=== PATIENT | female | born 1980 | race Caucasian/White ===

== ENCOUNTER → 2019-04-25 | Outpatient (CLI) | payer SELFPAY | PROVIDERS: Family Provider Internal Medicine; Visit Provider Internal Medicine | DX: R06.09 Other forms of dyspnea (principal); R41.3 Other amnesia | CPT/HCPCS: 71046 ==

== ENCOUNTER → 2019-05-24 13:45 | Outpatient (BNVA) | payer BC, SELFPAY | PROVIDERS: Family Provider Internal Medicine; PCP Internal Medicine; Visit Provider Nurse Practitioner Women's Health | DX: Z01.89 Encounter for other specified special examinations (principal) ==

== ENCOUNTER 2019-05-26 13:33 | Outpatient (CLI) | payer BC, SELFPAY ==
--- NOTE | 2019-05-26 13:45 | MR_ITS ---
WS: [id number] MRI HEAD WITH CONTRAST TECHNIQUE: Sagittal T1, T2 axial, T2 axial FLAIR, axial susceptibility weighted imaging, axial diffus ion weighted images, and coronal T2 images were obtained. Pre and post-T1 axial and post T1 coronal i mages. ADC and FSPGR images. CLINICAL INFORMATION: Memory loss or impairment COMPARISON: None. FINDINGS: No evidence of restricted diffusion to suggest acute ischemia. Ventricular system and basal cisterns are patent. No suspicious intracranial signal abnormalities. Normal robbins-white differentiation. Mayte l posterior fossa. Normal vascular flow voids at the skull base. Proximal 7th and 8th cranial nerves appear normal. Mild mucosal thickening in the paranasal sinuses. Mastoid air cells are well aerated. No hemosiderin on susceptibly weighted images. Normal optic chiasm and pituitary and infundibulum. Normal cavernous sinuses. Normal dural venous sin uses. MR/MR head wo/w con [id number] IMPRESSION: 1. No evidence of restricted diffusion to suggest acute ischemia. 2. No suspicious intracranial signal abnormalities. No significant parenchymal volume loss. 3. Mild mucosal thickening in the paranasal sinuses. Mastoid air cells are wel l aerated. 4. No abnormal intracranial enhancement. 5. Temporal lobes and hippocampal formations are normal in appearance.
== END 2019-05-26 13:34 | disposition home or self-care (01) ==
LOC: RADSHAW 13:38
PROVIDERS: Family Provider Internal Medicine; PCP Internal Medicine; Visit Provider Internal Medicine
DX: R41.3 Other amnesia (principal)
CPT/HCPCS: 70553; A9579

== ENCOUNTER 2019-06-05 15:03 | Outpatient (CLI) | payer BC, SELFPAY ==
--- NOTE | 2019-06-05 15:09 | USCV_ITS ---
Denice Dietz Age: 39 Gender: F : 1980 Exam Date: 06/05/2019 15:22 Ordering Phys: Farhad Kiran MD Technologist: Melva Andersen Exam Location: [facility] – [place] Indication: DYSPNEA ON EXERTION BP: 120 / 68 HR: 92 Rhythm: Sinus Technical Quality: Adequate MEASUREMENTS (Male / Female) Normal Values 2D ECHO LV Diastolic Diameter PLAX 4.4 cm 4.2 - 5.9 / 3.9 - 5.3 cm LV Systolic Diameter PLAX 3.6 cm LV Chamber Size 4.1 cm IVS Diastolic Thickness 0.7 cm 0.6 - 1.0 / 0.6 - 0.9 cm IVS Systolic Thickness 1.3 cm LVPW Diastolic Thickness 1.6 cm 0.6 - 1.0 / 0.6 - 0.9 cm LVPW Systolic Thickness 1.9 cm RV Chamber Size 2.6 cm LVOT Diameter 2.0 cm LV Ejection Fraction 2D Teich 37.3 % LV Ejection Fraction MOD 2C 64.2 % LV Ejection Fraction 2C AL 63.9 % LA Diameter 2.8 cm LA Width 3.7 cm LA Height 3.0 cm RA Width 2.8 cm RA Height 3.9 cm Aorta at Sinotubular Diameter 1.6 cm M-MODE LV Diastolic Diameter MM 5.4 cm 4.2 - 5.9 / 3.9 - 5.3 cm LV Systolic Diameter MM 4.1 cm LV Ejection Fraction MM Teich 46.6 % IVS Diastolic Thickness MM 0.6 cm 0.6 - 1.0 / 0.6 - 0.9 cm IVS Systolic Thickness MM 0.9 cm LVPW Diastolic Thickness MM 0.7 cm 0.6 - 1.0 / 0.6 - 0.9 cm LVPW Systolic Thickness MM 0.9 cm Aortic Annulus Diameter 2.7 cm LA Ao Ratio MM 1.0 MV E Point Septal Separation 1.2 cm DOPPLER AV Peak Velocity 136.0 cm/s LVOT Peak Velocity 103.0 cm/s AV Area Cont Eq vti 2.8 cm squared AV Area Cont Eq pk 2.4 cm squared MV Area PHT 3.9 cm squared Mitral E to A Ratio 1.2 MV E' Velocity 18.0 cm/s Mitral E to MV E' Ratio 5.0 Mitral E to LV E' Lateral Ratio 4.7 Mitral E to LV E' Septal Ratio 5.2 TR Peak Velocity 240.0 cm/s TR Peak Gradient 23.1 mmHg TV Peak E Velocity 54.0 cm/s Right Atrial Pressure 3.0 mmHg Pulmonary Artery Systolic Pressu 26.0 mmHg PV Peak Velocity 60.0 cm/s RV Acceleration Time 0.1 s RV Ejection Time 0.3 s RV AcT/ET 0.4 FINDINGS Left Ventricle Normal LV size with borderline low ejection fraction of 50 to 55%. Relative hypokinesis of the anteroseptal segments Right Ventricle The right ventricle is normal in size and function. Right Atrium The right atrium is normal in size. Left Atrium The left atrium is normal in size. Mitral Valve No gross morphologic abnormalities noted Aortic Valve Structurally normal aortic valve without significant sclerosis or stenosis. There is no aortic regurgitation. Tricuspid Valve Pulmonary artery systolic pressure is normal. Trace tricuspid valve regurgitation. Pulmonic Valve No gross abnormalities noted Pericardium Normal pericardium without effusion. Aorta Normal ascending aorta dimension. CONCLUSIONS Normal LV size with borderline low ejection fraction of 50 to 55%. Relative hypokinesis of the anteroseptal segments. Trace tricuspid valve regurgitation. Pulmonary artery systolic pressure is normal. No significant stenotic or elevated lesions. There is no pericardial effusion. There are no intracardiac masses. No previous study is available for comparison. Dr Rach Gonzales MD FACC (Electronically Signed) Final Date: 06 June 2019 22:23 S
== END 2019-06-05 15:04 | disposition home or self-care (01) ==
LOC: RAD 15:05
PROVIDERS: Family Provider Internal Medicine; PCP Internal Medicine; Visit Provider Internal Medicine
DX: R06.00 Dyspnea, unspecified (principal); I07.1 Rheumatic tricuspid insufficiency
CPT/HCPCS: 93306

== ENCOUNTER → 2019-06-06 14:12 | Outpatient (BNVA) | payer BC, SELFPAY | PROVIDERS: Family Provider Internal Medicine; PCP Internal Medicine; Visit Provider Otolaryngology | DX: J32.9 Chronic sinusitis, unspecified (principal); J31.0 Chronic rhinitis; J34.2 Deviated nasal septum; J34.3 Hypertrophy of nasal turbinates; T48.5X5A Adverse effect of other anti-common-cold drugs, initial encounter; X58.XXXA Exposure to other specified factors, initial encounter | CPT/HCPCS: 99203; 99214 ==

== ENCOUNTER 2019-10-16 20:44 | Emergency (ER) | payer BC, SELFPAY ==
--- NOTE | 2019-10-16 21:09 | W.ED.ANIMALB ---
HPI - Animal Bite General: Chief Complaint: Animal Bite Stated Complaint: cat bite Time Seen by Provider: 10/16/19 21:09 Source: patient Mode of arrival: ambulatory Limitations: no limitations History of Present Illness: HPI narrative: Patient is a 39-year-old female who presents to ED today with complaints of a cat bite to her right index finger that she sustained earlier this morning. She states the animal was a small kitten and was a stray so vaccination status is unknown. She states she has found at home for the kitten with a friend and the animal can be quarantined and monitored for the next 10 days. Tetanus is up-to-date. Onset (ago): hour(s) Animal: cat Description of animal: immunizations unknown and appeared well Mechanism: bite Location: other (R index finger) Associated symptoms: Deny chills or fever(s) Related Data: Patient tetanus UTD: Yes Review of Systems Const: Denies: fever(s), chills, body aches, fatigue or malaise Musc: Reports: extremity pain (R index finger) PFSH ED PFSH: Medical History (Updated 10/16/19 @ 22:21 by CRISTELA Eli) Anxiety Chronic fatigue Deviated septum Displacement of lumbar disc with radiculopathy LING (dyspnea on exertion) Memory loss or impairment Nasal turbinate hypertrophy Rhinitis medicamentosa Surgical History History of section (~2001) Family History Father CAD (coronary artery disease) Cancer, Onset Age: 67 Colon cancer Diabetes Hyperlipidemia Hypertension Stroke Amyloidosis Grandmother Cancer, Onset Age: 35 Maternal grandmother-Breast cancer Family/Other Cancer, Onset Age: 60 Maternal aunt-Breast cancer Mother Cancer uterine cancer- dx'd at 73 Hyperlipidemia Social History Smoking and tobacco status: never smoked Alcohol intake: current History of recent travel: No Physical Exam Const: COMMON NORMALS: no acute distress, average body habitus, patient oriented x3, no limitations, healthy appearing, alert and well nourished Extremity: OTHER: small puncture jonathon to palmar pad of R index finger with very mild swelling and redness present Neuro: COMMON NORMALS: patient oriented x3 SENSORIUM/ORIENTATION: Yes alert Skin: OTHER: see extremity assessment Course Vital Signs: Vital signs: Vital Signs Temperature 98.8 F 10/16/19 21:14 Pulse Rate 79 10/16/19 21:14 Respiratory Rate 16 10/16/19 21:14 Blood Pressure 138/88 10/16/19 21:14 Pulse Oximetry 99 10/16/19 21:14 Discharge Plan Discharge Patient Disposition: Home, Self-Care Clinical Impression: Cat bite of index finger Qualifiers: Encounter type: initial encounter Qualified Code(s): S61.258A - Open bite of other finger without damage to nail, initial encounter Condition: Stable Prescriptions: New amoxicillin-pot clavulanate [Augmentin] 875-125 mg tablet 1 tab PO Q12H 7 Days Qty: 14 RF: 0 No Action cephalexin 500 mg capsule 500 mg PO TID 10 Days Qty: 30 RF: 0 duloxetine 30 mg capsule,delayed release(DR/EC) See Rx Instructions .ROUTE .COMPLEX Qty: 30 RF: 0 Discharge Orders: Discharge Order (Routine); Ordered 10/16/19 Ordered By: Christina Cisneros Referrals: Farhad Kiran MD [Primary Care Provider] - Patient Instructions: Animal Bite (ED) Activity Restrictions/Additional Instructions: As discussed we will place you on antibiotics for the cat bite. Monitor for worsening signs of infection such as increasing redness, swelling, pain, drainage, fevers. Continue to monitor the cats mental status over the next 10 days and seek medical treatment if the cat begins to act abnormally. Coding Level of Care Code ED Copy Technician for Ken Segura
[2019-10-16 21:14] VITALS: BP 138/88; PULSE 79; RESP 16; TEMP 37.1; O2SAT 99; BMI 23.6
[2019-10-16] MEDS: amoxicillin-clav 875-125 mg Tablet 1 TAB PO (22:34)
[2019-10-16 22:35] VITALS: BP 140/82; PULSE 74; RESP 18; O2SAT 99
== END 2019-10-16 22:40 | disposition home or self-care (01) ==
PROVIDERS: Emergency Provider Physician Assistant; PCP Internal Medicine
DX: S61.250A Open bite of right index finger without damage to nail, initial encounter (principal); W55.01XA Bitten by cat, initial encounter
CPT/HCPCS: 12345; 99281; 99282

== ENCOUNTER → 2020-11-13 09:05 | Outpatient (BNVA) | payer OTHER, SELFPAY | PROVIDERS: PCP Internal Medicine; Visit Provider Nurse Practitioner Women's Health | DX: Z01.419 Encounter for gynecological examination (general) (routine) without abnormal findings (principal); F32.81 Premenstrual dysphoric disorder; R10.2 Pelvic and perineal pain; Z12.39 Encounter for other screening for malignant neoplasm of breast | CPT/HCPCS: 88175 ==

== ENCOUNTER 2021-05-22 12:24 | Outpatient (CLI) | payer OTHER, SELFPAY ==
--- NOTE | 2021-05-22 12:30 | XRR_ITS ---
PROCEDURE INFORMATION: Exam: XR Chest Exam date and time: 05/22/2021 12:30 PM Age: 41 years old Clinical indication: Pain and injury or trauma; Fall; Blunt trauma (contusions or hematomas); Left-sided; Injury details: PT fell in a hole-c/o pain left ribs, possible costochondritis? ; Additional info: Chest pain TECHNIQUE: Imaging protocol: XR of the chest. Views: 2 views. COMPARISON: CR Chest 2 views* [id number] 04/25/2019 4:55 PM FINDINGS: Lungs: Unremarkable. No consolidation. Pleural spaces: Unremarkable. No pleural effusion. No pneumothorax. Heart/Mediastinum: Unremarkable. No cardiomegaly. Bones/joints: Unremarkable. XR/XR chest 2V* [id number] IMPRESSION: No acute findings.
== END 2021-05-22 12:25 | disposition home or self-care (01) ==
PROVIDERS: PCP Internal Medicine; Visit Provider Internal Medicine
DX: R07.89 Other chest pain (principal)
CPT/HCPCS: 71046

== ENCOUNTER → 2021-08-07 10:13 | Outpatient (BNVA) | payer OTHER, SELFPAY | PROVIDERS: Visit Provider Family Medicine | DX: R07.89 Other chest pain (principal); I20.9 Angina pectoris, unspecified; R93.1 Abnormal findings on diagnostic imaging of heart and coronary circulation | CPT/HCPCS: 80053; 80061; 84443; 85025; 86803; 87806 ==